=== PATIENT | male | born 1995 | race Caucasian/White ===

== ENCOUNTER 2019-08-14 09:49 | Day surgery (SDC) | payer OTHER ==
[2019-08-14] MEDS ORDERED: SODIUM CHLORIDE 1,000 ML IV STA ×2 (09:54→12:50)
[2019-08-14] MEDS ORDERED: FAMOTIDINE 20 MG/50 ML IVPB 20 MG/50 ML MG IVPB ONE ×2 (09:54→10:14)
[2019-08-14] MEDS ORDERED: ONDANSETRON 4 MG/2 ML VIAL IVPUSH ONE (09:54)
--- NOTE | 2019-08-14 09:54 | PDOC ---
History of Present Illness - General Chief Complaint: Nausea/Vomiting Stated Complaint: NAUSEA,VOMITING Time Seen by Provider: 08/14/19 09:54 History Source: Patient Exam Limitations: No Limitations - History of Present Illness Initial Comments: 24 yo M history ADHD presents with N/V, unable to keep anything down since yesterday. Emesis is bilious, non-bloody. No travel, no sick contacts. History of cannabis use since 15 years of age, states he uses it heavily to "self- medicate". He has had the same supply for the past 3 weeks. Denies fever, chills , diarrhea. C/o diffuse abd cramping. Past History - Past Medical History Allergies/Adverse Reactions: Allergies Allergy/AdvReac Type Severity Reaction Status Date / Time Penicillins Allergy Verified 08/14/19 09:53 Home Medications: Ambulatory Orders NK [No Known Home Medication] 08/14/19 Review of Systems - Review of Systems Able to Perform ROS?: Yes Comments:: GENERAL/CONSTITUTIONAL: No fever or chills. No weakness. HEAD, EYES, EARS, NOSE AND THROAT: No change in vision. No ear pain or discharge. No sore throat. CARDIOVASCULAR: No chest pain or shortness of breath. RESPIRATORY: No cough, wheezing, or hemoptysis. GASTROINTESTINAL: +Nausea, vomiting. No diarrhea or constipation. GENITOURINARY: No dysuria, frequency, or change in urination. MUSCULOSKELETAL: No joint or muscle swelling or pain. No neck or back pain. SKIN: No rash. NEUROLOGIC: No headache, vertigo, loss of consciousness, or change in strength/ sensation. ENDOCRINE: No increased thirst. No abnormal weight change. HEMATOLOGIC/LYMPHATIC: No anemia, easy bleeding, or history of blood clots. ALLERGIC/IMMUNOLOGIC: No hives or skin allergy. *Physical Exam - Physical Exam GENERAL: Awake, alert, and fully oriented. Well-appearing, mild pallor. Intermittently vomiting. HEAD: No signs of trauma EYES: PERRLA, EOMI, sclera anicteric, conjunctiva clear ENT: Auricles normal inspection, hearing grossly normal, nares patent, oropharynx clear without exudates. Dry mucosa NECK: Normal ROM, supple, no lymphadenopathy, JVD, or masses LUNGS: Breath sounds equal, clear to auscultation bilaterally. No wheezes, and no crackles HEART: Regular rate and rhythm, normal S1 and S2, no murmurs, rubs or gallops ABDOMEN: Soft, nontender, normoactive bowel sounds. No guarding, no rebound. No masses EXTREMITIES: Normal range of motion, no edema. No clubbing or cyanosis. No cords, erythema, or tenderness NEUROLOGICAL: Cranial nerves II through XII grossly intact. Normal speech, normal gait. Motor and sensation intact SKIN: Warm, dry, normal turgor, no rashes or lesions noted. ED Treatment Course - LABORATORY CBC & Chemistry Diagram: 08/14/19 10:00 08/14/19 10:00 Medical Decision Making - Medical Decision Making 08/14/19 10:35 Contacted [facility] urgent care to discuss his care, patient received 8mg zofran ODT there. Will cancel zofran and give reglan. Suspect viral gastro vs cannabis hyperemesis. He is well-appearing, nontoxic. 08/14/19 12:51 Pt reassessed. He states he feels much better now, has not vomited, asking for water. No longer pale, appears better from prior assessment. Discussed lab results with him. Will obtain CT on the basis of leukocytosis with neutrophil predominance. 08/14/19 14:16 CT results d/w Dr. Avila. Patient is currently nontender, feeling better. CT is suspicious for impending appendicitis. Options at present are to admit for serial abd exams and observation, DC and return if/when symptoms worsen. D/w patient, as well as his parents and step-mother via phone. They are still discussing options. 08/14/19 16:16 Dr. Avila at bedside to evaluate. Discharge - Discharge Information Problems reviewed: Yes Clinical Impression/Diagnosis: Appendicitis Qualifiers: Appendicitis type: acute appendicitis Acute appendicitis type: unspecified acute appendicitis type Qualified Code(s): K35.80 - Unspecified acute appendicitis Condition: Stable - Admission Yes - Follow up/Referral - Patient Discharge Instructions - Post Discharge Activity
[2019-08-14 09:56] VITALS: BMI 22.3
[2019-08-14 10:14] LABS: HEMATOCRIT 45.9 % (35.4-49); HEMOGLOBIN 15.5 GM/dl (11.7-16.9); MCH 31.7 pg (25.7-33.7); MCHC 33.9 g/dl (32.0-35.9); MEAN CELL VOLUME 93.7 fl (80-96); MEAN PLT VOLUME 8.5 fl (7.5-11.1); PLATELET COUNT 358 K/MM3 (134-434); RDW 11.9 % (11.9-15.9); WHITE BLOOD COUNT 15.4 K/mm3 (4.0-10.8)
[2019-08-14] MEDS ORDERED: ONDANSETRON 4 MG/2 ML VIAL ONE ×2 (10:24→17:32)
[2019-08-14 10:31] LABS: ALBUMIN 5.2 g/dl (3.4-5.0); BILIRUBIN,TOTAL 1.1 mg/dl (0.2-1); CREATININE 1.2 mg/dl (0.55-1.3); POTASSIUM 3.4 mmol/L (3.5-5.1); TOT PROT 8.3 g/dl (6.4-8.2)
[2019-08-14] MEDS ORDERED: METOCLOPRAMIDE HCL INJECTION 10 MG/2 ML VIAL IVPB ONE (10:40)
[2019-08-14] MEDS ORDERED: METOCLOPRAMIDE HCL INJECTION 10 MG/2 ML VIAL ONE (10:42)
[2019-08-14 10:50] LABS: PLATELET ESTIMATE ADEQUATE
[2019-08-14] MEDS ORDERED: LIDOCAINE HCL 1%, 10 MG/ML (20ML VIAL) ONE (16:55)
[2019-08-14] MEDS ORDERED: GUM MASTIC/STORAX/MSAL/ALCOHOL 1 DRP DROPSBTL MC ONE (16:55)
[2019-08-14] MEDS ORDERED: BUPIVACAINE HCL/PF 0.5% (5MG/ML) 10 ML VIAL ONE (16:55)
[2019-08-14] MEDS ORDERED: LACTATED RINGERS SOLUTION 1,000 ML/1,000 ML INFUS.BAG IV SCH ×2 (17:00→19:16)
--- NOTE | 2019-08-14 17:04 | HP ---
Admitting History and Physical - Primary Care Physician PCP: none - Admission Chief Complaint: N/V History of Present Illness: 24yo M with ADHD, self-medicates with daily MJ use/vaping, also vapes nicotine daily, no previous surgeries, presented with multiple episodes of N/V this week. He had some earlier in the week, but yesterday after work, developed central abdominal discomfort and could not stop vomiting, associated with anorexia and some chills. He had some liquids and matzoh ball soup, but hasn't tolerated solids for a few days. Last po yesterday except water and ice chips earlier today. In ER, he was afebrile with wbc 15 left shifted, and had CT showing appendicolith and mildly enlarged appendix at 8mm. His pain shifted a bit toward RLQ, but he now feels better and a little hungry. He did have formed BM earlier this morning, but admits to a little diarrhea in the last few days. History Source: Patient, Family Member (father) Limitations to Obtaining History: No Limitations - Past Medical History Cardiovascular: Yes: Murmur Pulmonary: Yes: Asthma (remotely - no medication for many years) Gastrointestinal: Yes: Gastritis (in past) Psych: Yes: Addictions (MJ/nicotine), Other (ADHD) - Past Surgical History Past Surgical History: Yes: None - Smoking History Smoking history: Current every day smoker (vapes nicotine and MJ) Have you smoked in the past 12 months: Yes Aproximately how many cigarettes per day: 0 (vapes only) - Alcohol/Substance Use Hx Alcohol Use: Yes (occasional) History of Substance Use: reports: Marijuana (daily and vapes) Date of Last Use: 08/14/19 - Social History Usual Living Arrangement: Yes: Other (with roommate) ADL: Independent Occupation: desk job Home Medications - Allergies Allergies/Adverse Reactions: Allergies Allergy/AdvReac Type Severity Reaction Status Date / Time Penicillins Allergy Verified 08/14/19 09:53 - Home Medications Home Medications: Ambulatory Orders NK [No Known Home Medication] 08/14/19 Family Medical History Family History: Unremarkable (noncontributory) Review of Systems - Review of Systems Constitutional: reports: Chills, Loss of Appetite. denies: Fever Eyes: denies: Blurred Vision, Recent Change in Vision HENT: reports: Throat Pain (after vomiting). denies: Difficult Swallowing Neck: denies: Swollen Glands, Tenderness Cardiovascular: denies: Chest Pain, Palpitations Respiratory: denies: Cough, SOB Gastrointestinal: reports: Abdominal Pain (with hpi), Nausea (with hpi), Vomiting (with hpi). denies: Constipation, Diarrhea Genitourinary: denies: Burning, Dysuria Musculoskeletal: denies: Back Pain, Joint Pain, Muscle Pain Integumentary: reports: Other (new tattoo right lower leg/calf). denies: Change in Color, Rash Neurological: reports: Dizziness (mild yesterday), Headache Physical Examination Vital Signs: Vital Signs Temperature 97.8 F 08/14/19 09:50 Pulse Rate 60 08/14/19 09:50 Respiratory Rate 18 08/14/19 09:50 Blood Pressure 126/61 08/14/19 09:50 O2 Sat by Pulse Oximetry (%) 100 08/14/19 09:50 Constitutional: Yes: Well Nourished, No Distress, Calm Eyes: Yes: Conjunctiva Clear, EOM Intact HENT: Yes: Atraumatic, Normocephalic Neck: Yes: Supple, Trachea Midline Cardiovascular: Yes: Regular Rate and Rhythm, Murmur (faint/difficult to appreciate) Respiratory: Yes: Regular, CTA Bilaterally Gastrointestinal: Yes: Normal Bowel Sounds, Soft, Tenderness (focal RLQ inferolaterally, no lita/guarding). No: Distention, Tenderness, Epigastrium ...Rectal Exam: Yes: Deferred Renal/: No: CVA Tenderness - Left, CVA Tenderness - Right Musculoskeletal: No: Back Pain, Joint Stiffness, Joint Swelling Extremities: No: Cool, Cyanosis Edema: No Peripheral Pulses WNL: Yes Integumentary: Yes: Tattoos. No: Jaundice, Rash Neurological: Yes: Alert, Oriented. No: Unsteady Gait Psychiatric: Yes: Alert, Oriented Labs: CBC, BMP 08/14/19 10:00 08/14/19 10:00 CMP Sodium 137 mmol/L (136-145) 08/14/19 10:00 Potassium 3.4 mmol/L (3.5-5.1) L 08/14/19 10:00 Chloride 103 mmol/L (98-107) 08/14/19 10:00 Carbon Dioxide 21 mmol/L (21-32) 08/14/19 10:00 Anion Gap 13 MMOL/L (8-16) 08/14/19 10:00 BUN 15.0 mg/dl (7-18) 08/14/19 10:00 Creatinine 1.2 mg/dl (0.55-1.3) 08/14/19 10:00 Est GFR (CKD-EPI)AfAm 98.19 08/14/19 10:00 Est GFR (CKD-EPI)NonAf 84.72 08/14/19 10:00 Random Glucose 148 mg/dl (74-106) H 08/14/19 10:00 Calcium 10.0 mg/dl (8.5-10) 08/14/19 10:00 Total Bilirubin 1.1 mg/dl (0.2-1) H 08/14/19 10:00 AST 26 U/L (15-37) 08/14/19 10:00 ALT 16 U/L (13-61) 08/14/19 10:00 Alkaline Phosphatase 52 U/L (45-117) 08/14/19 10:00 Total Protein 8.3 g/dl (6.4-8.2) H 08/14/19 10:00 Albumin 5.2 g/dl (3.4-5.0) H 08/14/19 10:00 Lipase 60 U/L (73-393) L 08/14/19 10:00 Imaging - Results Cat Scan: Report Reviewed, Image Reviewed (appendix to 8mm, appendicolith at base, no clear surrounding inflammation, no free fluid or air, no obstruction) Problem List - Problems (1) Acute appendicitis without peritonitis Assessment/Plan: admit 24H/satellite to surgery NPO until postop periop antibiotics DVT prophylaxis pain meds prn nonnarcotics first line Discussed with patient risks, benefits and alternatives of laparoscopic possible open appendectomy, including but not limited to bleeding, infection, injury to adjacent structures, intestinal leak or injury, intraabdominal abscess , incisional hernia, need for further procedures, ; alternatives include antibiotics, delayed or no surgery - risks of this include failure of nonoperative therapy, perforation, sepsis, recurrence, . Patient desires to proceed with operation - will take to OR for above. Informed consent signed for same. Code(s): K35.80 - UNSPECIFIED ACUTE APPENDICITIS (2) Appendicolith Code(s): K38.9 - DISEASE OF APPENDIX, UNSPECIFIED (3) Nausea & vomiting Code(s): R11.2 - NAUSEA WITH VOMITING, UNSPECIFIED Qualifiers: Vomiting type: unspecified Vomiting Intractability: non-intractable Qualified Code(s): R11.2 - Nausea with vomiting, unspecified (4) Periumbilical abdominal pain Code(s): R10.33 - PERIUMBILICAL PAIN (5) Nicotine dependence, other tobacco product, uncomplicated Code(s): F17.290 - NICOTINE DEPENDENCE, OTHER TOBACCO PRODUCT, UNCOMPLICATED (6) Marijuana abuse, continuous Code(s): F12.10 - CANNABIS ABUSE, UNCOMPLICATED
[2019-08-14 17:06] LABS: INR 1.37 (0.82-1.09); PROTHROMBIN TIME (PATIENT) 15.2 SEC (10.2-13.0)
[2019-08-14] MEDS ORDERED: fentaNYL CITRATE 250 MCG/5 ML VIAL ONE (17:09)
[2019-08-14] MEDS ORDERED: PROPOFOL 20 ML ONE ×2 (17:10)
[2019-08-14] MEDS ORDERED: ROCURONIUM BROMIDE 50 MG/5 ML SYRINGE ONE ×2 (17:10→17:52)
[2019-08-14] MEDS ORDERED: MIDAZOLAM HCL 2 MG/2 ML SINGLE DOSE VIAL ONE (17:10)
[2019-08-14] MEDS ORDERED: SUCCINYLCHOLINE CHLORIDE 200 MG/10 ML SYRINGE ONE (17:10)
[2019-08-14] MEDS ORDERED: LIDOCAINE HCL/PF 2% SDV 5ML VIAL ONE (17:32)
[2019-08-14] MEDS ORDERED: ceFAZolin SODIUM 1 GM VIAL ONE (17:32)
[2019-08-14] MEDS ORDERED: DEXAMETHASONE SOD PHOSPHATE 4 MG/1 ML VIAL ONE (17:32)
[2019-08-14] MEDS ORDERED: LIDOCAINE HCL 2% JELLY (5 ML/TUBE) ONE (17:32)
[2019-08-14] MEDS ORDERED: BUPIVACAINE HCL/PF 0.5% (5MG/ML) 10 ML VIAL IJ ONE (17:33)
[2019-08-14] MEDS ORDERED: NEOSTIGMINE METHYLSULFATE 0.5 MG/ML - 10 ML MDV ONE (18:33)
[2019-08-14] MEDS ORDERED: GLYCOPYRROLATE 0.2 MG/1 ML VIAL ONE (18:33)
[2019-08-14] MEDS ORDERED: HYDROmorphone HCL/PF 1 MG/ML AMP ONE ×2 (18:35)
[2019-08-14] MEDS ORDERED: PROMETHAZINE HCL 25 MG/1 ML VIAL IVPUSH PRN (18:59)
[2019-08-14] MEDS ORDERED: ONDANSETRON 4 MG/2 ML VIAL IVPUSH PRN ×2 (18:59→19:16)
[2019-08-14] MEDS ORDERED: oxyCODONE HCL 5 MG TABLET PO PRN ×2 (18:59)
--- NOTE | 2019-08-14 19:08 | OP ---
Operative Note - Note: Operative Date: 08/14/19 Pre-Operative Diagnosis: acute appendicitis Operation: laparoscopic appendectomy Findings: enlarged/inflamed distal appendix, base normal with palpable appendicolith, inside specimen; no fluid in pelvis Post-Operative Diagnosis: Same as Pre-op Surgeon: Audi Avila Anesthesiologist/MELTER HELPER: Waldemar Amato Anesthesia: General, Local (10ml 0.5% marcaine) Specimens Removed: appendix to pathology Estimated Blood Loss (mls): 5 Drains & Tubes with Location: Asif out at end of case Drains, Volume Out (mls): 300 (UOP) Fluid Volume Replaced (mls): 800 (crystalloid) Operative Report Dictated: Yes
[2019-08-14] MEDS: ACETAMINOPHEN 325 MG TABLET (FP) PO SCH (20:38)
[2019-08-14] MEDS ORDERED: ACETAMINOPHEN 325 MG TABLET (FP) PO SCH (21:00)
[2019-08-14] MEDS: IBUPROFEN 600 MG TABLET (FP) PO SCH (23:58)
[2019-08-15] MEDS ORDERED: IBUPROFEN 600 MG TABLET (FP) PO SCH
[2019-08-15] MEDS: ACETAMINOPHEN 325 MG TABLET (FP) PO SCH ×2 (02:59→09:00)
[2019-08-15] MEDS: IBUPROFEN 600 MG TABLET (FP) PO SCH ×3 (05:55→17:34)
[2019-08-15] MEDS ORDERED: oxyCODONE HCL 5 MG TABLET PO ONE ×2 (11:58→18:07)
--- NOTE | 2019-08-15 12:16 | DS ---
Physical Examination Vital Signs: Vital Signs Temperature 98.2 F 08/15/19 03:00 Pulse Rate 57 L 08/15/19 03:00 Respiratory Rate 18 08/15/19 03:00 Blood Pressure 120/48 L 08/15/19 03:00 O2 Sat by Pulse Oximetry (%) 100 08/15/19 07:01 Findings/Remarks: Seen and examined in bed. c/o pain, but less than previously/before admission. Has voided, been up to bathroom but not ambulating in halls yet. Tolerated liquids and some applesauce. Not very hungry yet. Passed some gas, no BM yet. IV was coming out - removed early this am. Pt ate a little for dinner, pain much better controlled with oxycodone 5mg in addition to tylenol and ibuprofen. Constitutional: Yes: Well Nourished, No Distress, Calm Eyes: Yes: Conjunctiva Clear, EOM Intact HENT: Yes: Atraumatic, Normocephalic Cardiovascular: Yes: Regular Rate and Rhythm Respiratory: Yes: Regular, CTA Bilaterally Gastrointestinal: Yes: Normal Bowel Sounds, Soft, Distention (minimal, some tympany), Tenderness (mostly incisional, mild RLQ, no rebound/guarding) Musculoskeletal: No: Joint Stiffness, Joint Swelling Extremities: No: Cool, Cyanosis Integumentary: Yes: Incision (x3 dressed), Tattoos. No: Jaundice, Rash Wound/Incision: Yes: Steri Strips (under dressings), Dressing Dry and Intact (x3 ). No: Dressing Removed Neurological: Yes: Alert, Oriented. No: Unsteady Gait (got up and ambulated to nurse's station and back to room) Psychiatric: Yes: Alert, Oriented Labs: no new labs Discharge Summary Problems reviewed: Yes Reason For Visit: APPENDICITIS/APPENDECTOMY Current Active Problems Acute appendicitis without peritonitis (Acute) Appendicolith (Acute) Marijuana abuse, continuous (Acute) Nausea & vomiting (Acute) Nicotine dependence, other tobacco product, uncomplicated (Acute) Periumbilical abdominal pain (Acute) Procedures: Principal: laparoscopic appendectomy Hospital Course: 24yo M with ADHD, remote asthma, uses MJ and vapes nicotine daily, presented with nausea and vomiting, associated with abdominal pain migrating from central abdomen the day before to RLQ in ER, anorexia, subjective chills. He had wbc 15 , and CT showed appendicolith and borderline enlarged appendix. Exam was significant for focal RLQ tenderness, and he was taken for uneventful laparoscopic appendectomy with findings of enlarged/inflamed appendix and appendicolith taken inside specimen. Postop, he has tolerated some po, ambulated and voided. Pain is managed with alternating Tylenol and ibuprofen, and prn oxycodone. He will be discharged home with lifting restrictions and Rx for a limited number of Percocet to use with tylenol and ibuprofen. He is urged not to smoke or vape anything, and to follow up with a primary care physician as well as surgery. Time spent on discharge 35 minutes. Condition: Improved - Instructions Diet, Activity, Other Instructions: Postoperative instructions: You had a laparoscopic appendectomy on 08/14/[address] Audi Avila of [facility]. Activity: Resume your usual activities gradually, but no heavy exertion or lifting more than 10-15 pounds for 1 month. Remove dressings 48 hours after surgery; sticky tapes underneath will fall off by themselves. You may shower daily starting then, just pat the incision areas dry. No bath or swimming until skin incisions have healed. Eat lightly at first, but advance to your usual diet as tolerated. Pain: For pain, you may use and alternate Tylenol (acetaminophen) 1-2 pills and/ or ibuprofen 200 mg (1-3 pills) every 6 hours each as needed; this means that you can take one OR the other at 3-hour intervals. If you are prescribed a Tylenol/narcotic combination for severe pain, use it instead of plain Tylenol as needed and switch back when your pain starts decreasing. Do not take more than 4000mg of acetaminophen in a day. Take medications as prescribed or indicated on the labeling. Follow-up: Call Dr. Avila's office at [phone] to make your postop appointment. Clinic is held in the [facility] on the first floor of [facility]. Call the office if you have: * increasing pain not responsive to pain medication * fever of 101F or higher * vomiting * unusual or increasing bleeding or drainage from wounds * increasing redness or swelling at wound sites Also, see your primary medical doctor within 1-2 weeks, or make an appointment with one to whom you have been referred. Referrals: Audi Avila MD [Staff Physician] - Valentine Lockett MD [Staff Physician] - (call for appt to establish primary care , if you do not have another physician) Disposition: HOME - Home Medications Comprehensive Discharge Medication List: Ambulatory Orders Acetaminophen [Tylenol .Regular Strength -] 1,000 mg PO Q6H tablet 08/15/19 Ibuprofen [Motrin -] 600 mg PO Q6H tablet 08/15/19 Percocet 5/325 mg PO Q6H PRN SEVERE PAIN #12 tablet 08/15/19 Prescription Drug Monitoring Program (I-STOP) results: I-STOP not reviewed
[2019-08-15 14:47] VITALS: BP 125/66; PULSE 58; TEMP 97.7
[2019-08-15] MEDS ORDERED: ACETAMINOPHEN 500 MG TABLET (FP) PO SCH (15:00)
--- NOTE | 2019-08-18 16:07 | PATH ---
Surgical Pathology Report Patient Name: RESHMA BROWN Med. Rec. #: [id number] /Age/Gender: 1995 (Age: 24) / M Account: [id number] Location: [facility] Taken: 08/14/2019 Received: 08/14/2019 Reported: 08/18/2019 Physicians: Navarro Chaudhary Specimen(s) Received APPENDIX Clinical History Acute appendicitis Final Diagnosis APPENDIX, LAPAROSCOPIC APPENDECTOMY: ACUTE APPENDICITIS. Electronically Signed Chelsi Lopez M.D. Gross Description Received in formalin, labeled "appendix," is a 6 cm. in length vermiform appendix with a stapled margin of resection and abundant attached fat. The serosa is nolan-moreira and smooth. Sectioning reveals a focally dilated lumen containing a fecalith. The wall of the appendix averages 0.2 cm. in thickness. Senior Information Developer sections are submitted in one cassette. /08/17/2019 saudi08/17/2019
--- NOTE | 2019-08-22 09:04 | OP ---
DATE OF OPERATION: 08/14/2019 PREOPERATIVE DIAGNOSIS: Acute appendicitis with appendicolith. POSTOPERATIVE DIAGNOSIS: Acute appendicitis with appendicolith. PROCEDURE: Laparoscopic appendectomy. SURGEON: Audi Avila MD ANESTHESIA: General endotracheal and local, 10 mL of 0.5% Marcaine. ESTIMATED BLOOD LOSS: 5 mL. FLUIDS: 800 mL of crystalloid. URINE OUTPUT: 300 mL (Asif out at end of case). SPECIMEN: Appendix to Pathology. FINDINGS: An enlarged, inflamed distal appendix. Normal base with palpable appendicolith inside the specimen and no fluid in the pelvis. DISPOSITION: Stable and extubated to PACU. INDICATIONS FOR PROCEDURE: The patient is a 24-year-old male with ADHD who self-medicates with daily marijuana use, that is smoking and vaping. He also vapes nicotine daily and has a remote history of asthma and a benign heart murmur. He presented to the [facility] Emergency Room with multiple episodes of nausea and vomiting over several of the previous days. The day prior to presentation, however, he developed central abdominal discomfort associated with anorexia and some chills and could not stop vomiting solid foods, although he was able to tolerate some liquids and a little matzo ball soup. In the emergency room, he was afebrile with a white count of 15,000, left-shifted. He had a CT showing the presence of an appendicolith and a mildly enlarged appendix. His pain had shifted a bit to the right lower quadrant. He also admitted to a little diarrhea in the previous couple of days. His exam was consistent with focal right lower quadrant tenderness inferolaterally without rebound or guarding. Risks, benefits, and alternatives of laparoscopic, possible open, appendectomy were discussed with the patient including, but not limited to, bleeding, infection, injury to adjacent structures, intestinal leak or injury, intra- abdominal abscess, incisional hernia, and need for further procedures with alternatives inclusive of antibiotics and delayed or no surgery, giving risks of failure of nonoperative therapy, perforation, sepsis, recurrence, and . The patient desired to proceed with the operation, signed informed consent for the same, and is now brought to the OR for this procedure. OPERATIVE TECHNIQUE: The patient was brought to the operating room and laid supine on the operating table. Sequential compression devices were applied to bilateral lower extremities, and after induction and intubation by Anesthesia, his lower abdomen was clipped of hair, prepped and draped in sterile fashion, after a Asif catheter was placed, which was removed from his bladder at the end of the case. A small infraumbilical midline incision was made with a scalpel and carried into subcutaneous tissues with electrocautery, until the abdominal wall fascia was identified, scored and elevated with Mary clamps. The peritoneum was entered bluntly with the tip of a clamp. A fingertip was inserted to ensure entry into the abdominal cavity and the absence of any underlying adhesions. A stay suture of 0 Vicryl was then placed in [id number] fashion in the fascia for later closure, and the Michael trocar introduced directly into the abdominal cavity and secured in place with the balloon. The abdomen was insufflated with carbon dioxide. The patient was placed in Trendelenburg position, and the laparoscope inserted with visualization of the pelvis, and no fluid was noted to be present there. Two additional 5-mm ports were then placed under direct vision in the suprapubic and left lower quadrant areas. The camera was switched to the left lower quadrant port, and graspers introduced to the other two. The small bowel was then gently manipulated medially away from the right lower quadrant, revealing the distal aspect of the appendix, which was enlarged and inflamed. Working proximally, a normal base was identified, and the appendix was grasped near the base with the left hand grasper. There was a palpable appendicolith just distal to this in the neck of the appendix. A [place] dissector was used to create a window at the base of the appendix where it joined the cecum, such that the base could be transected with a 45 purple load of the Endo LILO stapler. Once this had been accomplished, the staple line was inspected for hemostasis and was noted not to be bleeding. The appendix was then held up, and the mesoappendix taken with a white load of the Endo LILO stapler, to completely separate the appendix from the adjacent tissues. It was set down momentarily in the right lower quadrant to inspect the operative field and the staple lines. Again, hemostasis was noted. There was scant fluid in the pelvis and very little blood loss. The appendix was then placed in an EndoCatch bag and drawn up into the Michael trocar inside the bag. The suprapubic port was removed under direct vision, with the camera in the left lower quadrant port. The appendix in the bag along with the Michael trocar were withdrawn, also under direct vision, and then the camera and left lower quadrant port also removed en bloc. The abdomen was exsufflated of carbon dioxide, and the specimen passed off to be sent to Pathology. The appendicolith was palpable within the base of the appendix. The patient was returned to neutral position. The stay suture at the umbilicus was tied to close the fascia there. Hemostasis was achieved in port sites with electrocautery where necessary, and local anesthetic infiltrated into all the port sites. Skin was then closed with 4-0 Vicryl subcuticular sutures, including a running at the umbilicus. Benzoin and Steri-Strips were applied over each incision site, and dressings of gauze and Tegaderm placed over these. The Asif catheter was then removed from the patient's bladder. Counts were correct at the end of the procedure. The patient was then awakened and extubated by Anesthesia, moved back onto a stretcher, and taken to the recovery room in stable condition, having tolerated the procedure well. Navarro [id number] MTDD
== END 2019-08-15 18:59 | disposition home or self-care (01) ==
LOC: FER 09:49 → FASU 16:44 → FM/S 16:58 → FASU 08-15 18:59
PROVIDERS: ATTEND Surgery
PROC: 0DTJ4ZZ Resection of Appendix, Percutaneous Endoscopic Approach (ICD-10-PCS; principal; 2019-08-14 17:48)
DX: K35.890 Other acute appendicitis without perforation or gangrene (principal); F90.9 Attention-deficit hyperactivity disorder, unspecified type; Z88.0 Allergy status to penicillin
CPT/HCPCS: 36415; 74177-TC; 80053; 83690; 85025; 85610; 86850; 86900; 86901; 88304-TC; 94760; 99285-25; J7030

== ENCOUNTER 2019-08-26 14:32 | Emergency (ER) | payer OTHER ==
--- NOTE | 2019-08-26 14:46 | PDOC ---
History of Present Illness - General Chief Complaint: Wound Stated Complaint: ABDOMINAL SURGICAL SITE REDDENED Time Seen by Provider: 08/26/19 14:45 History Source: Patient Exam Limitations: No Limitations - History of Present Illness Initial Comments: 08/26/19 14:45 Teddy Atkinson is a 24M with H laparoscopic appendectomy with Dr. Avila presenting with surgical site pain and discharge. Had abdominal pain 10 days prior and diagnosed with appendicitis on 08/15/19. Underwent lap appy with Dr. Avila at that time, discharged home. Recovering well, but for last 2 days has been noticing mild yellow discharge on bandage and discomfort below the largest midline port incision. Concerned for infection, came to ED for eval. Denies F/C, N/V/C/D, SOB, chest pain, urinary sx. Otherwise feels well. Past History - Past Medical History Allergies/Adverse Reactions: Allergies Allergy/AdvReac Type Severity Reaction Status Date / Time Penicillins Allergy Unknown Verified 08/26/19 14:41 Home Medications: Ambulatory Orders NK [No Known Home Medication] 08/26/19 COPD: No GI Disorders: Yes (gastritis) - Psycho Social/Smoking Cessation Hx Smoking History: Current every day smoker (vapes nicotine and MJ) Have you smoked in the past 12 months: Yes Number of Cigarettes Smoked Daily: 0 (vapes only) Hx Alcohol Use: Yes (occasional) Review of Systems - Review of Systems Able to Perform ROS?: Yes Constitutional: No: Symptoms Reported HEENTM: No: Symptoms Reported Respiratory: No: Symptoms reported Cardiac (ROS): No: Symptoms Reported ABD/GI: Yes: Abdominal cramping. No: Constipated, Diarrhea, Nausea, Poor Appetite, Poor Fluid Intake, Rectal Bleeding, Vomiting : No: Symptoms Reported Musculoskeletal: No: Symptoms Reported Integumentary: No: Symptoms Reported Neurological: No: Symptoms reported Endocrine: No: Symptoms Reported Hematologic/Lymphatic: No: Symptoms Reported All Other Systems: Reviewed and Negative *Physical Exam - Physical Exam General Appearance: Yes: Nourished, Appropriately Dressed, Thin, Other (resting comfortably in bed in NAD). No: Apparent Distress HEENT: positive: EOMI, WALDO, Normal ENT Inspection, Normal Voice, Symmetrical, Pharynx Normal, Hearing Grossly Normal. negative: Muffled/Hoarse voice, Pharyngeal Erythema, Tonsillar Exudate Neck: positive: Trachea midline, Normal Thyroid, Supple, Thyromegaly. negative: Tender, Rigid, Lymphadenopathy (R), Lymphadenopathy (L), Tender lateral, Tender midline Respiratory/Chest: positive: Lungs Clear, Respiratory Distress. negative: Chest Tender, Accessory Muscle Use, Crackles, Rales, Rhonchi, Stridor, Wheezing Cardiovascular: positive: Regular Rhythm, Regular Rate. negative: Murmur Gastrointestinal/Abdominal: positive: Normal Bowel Sounds, Tender (discomfort to palpation of subumbilical surgical site), Soft, Other (largest surgical incision below umbilicus well-approximated with granulation tissue and no active discharge or bleeding, other two incisions closed and appear well-healed). negative: Flat (has mild swelling to region around subumbilical surgical incision), Organomegaly, Pulsatile Mass, Protuberent, Hernia Musculoskeletal: positive: Normal Inspection. negative: CVA Tenderness, Decreased Range of Motion, Vertebral Tenderness Extremity: positive: Normal Capillary Refill, Normal Inspection, Normal Range of Motion, Pelvis Stable. negative: Tender, Coldness, Cyanosis Integumentary: positive: Normal Color, Dry, Warm Neurologic: positive: Fully Oriented, Alert, Normal Mood/Affect, Normal Response Medical Decision Making - Medical Decision Making 08/26/19 15:00 Patient presents for surgical wound check 10 days after surgery for some mild discharge and discomfort from surgical site. Appears to have some mild yellow granulation tissue but no active bleeding or discharge, wound margins well-a pproximated without sutures, mild discomfort when palpating but no other concerning findings. Bedside shows <0.5cm deep well-demarcated fluid-filled region directly below the incision consistent with a superficial seroma, no loculations, low suspicion of abscess or tract into abdominal cavity. Stable for discharge home with surgery clinic f/u as scheduled, with strict return precautions explained. Discharge - Discharge Information Problems reviewed: Yes Clinical Impression/Diagnosis: Skin wound from surgical incision Abdominal pain Qualifiers: Abdominal location: lower abdomen, unspecified Qualified Code(s): R10.30 - Lowe r abdominal pain, unspecified Condition: Stable Disposition: HOME - Admission No - Follow up/Referral Referrals: Audi Avila MD [Primary Care Provider] - - Patient Discharge Instructions Patient Printed Discharge Instructions: How to Care for a Surgical Wound Additional Instructions: Today you were evaluated for pain and discharge from your surgery incision. We have evaluated your abdomen and do not see evidence of a deep infection. At home, please take Advil as needed for pain. If you experience worsening pain, fevers/chills, nausea/vomiting, diarrhea, or have pus or blood from your wound, please return to the emergency room. - Post Discharge Activity
[2019-08-26 14:59] VITALS: BP 141/83; PULSE 59; TEMP 98.2; BMI 20.3
--- NOTE | 2019-08-26 15:00 | PDOC ---
Attending Attestation - Resident Resident Name: Derek Phillips - ED Attending Attestation I have performed the following: I have examined & evaluated the patient, The case was reviewed & discussed with the resident, I agree w/resident's findings & plan, Exceptions are as noted - HPI HPI: 08/26/19 15:02 Appendectomy by laparoscope approximately 1 week ago, Dr. Avila. Now has warmth and mild pain at the incision above the umbilicus. There has been a small amount of discolored drainage from the wound. No fever/chills, nausea, vomiting, diarrhea, or severe intra-abdominal pain. - Physicial Exam PE: 08/26/19 15:05 Afebrile, vital signs normal. Mild erythema around the upper incision. Mild tenderness around the incision with the suggestion of a subcutaneous collection of fluid, may be a seroma. No purulent drainage present now. No tenderness to deep palpation that would suggest an abscess or other intraperitoneal infection. - Medical Decision Making 08/26/19 15:07 Assessment: Small seroma versus reaction to subcuticular suture material. No external sutures in place Plan: Warm compresses, analgesics, and follow-up with surgeon. Return to ER if there is fever or increased pain. Fully ambulatory and in no significant distress at discharge to follow-up as directed 08/26/19 15:40
== END 2019-08-26 15:43 | disposition home or self-care (01) ==
LOC: FER 14:32
DX: R10.30 Lower abdominal pain, unspecified (principal); F17.210 Nicotine dependence, cigarettes, uncomplicated; T81.89XA Other complications of procedures, not elsewhere classified, initial encounter; Z88.0 Allergy status to penicillin
CPT/HCPCS: 99281-25

== ENCOUNTER 2022-02-19 12:34 | Emergency (ER) | payer OTHER ==
[2022-02-19 12:44] VITALS: BP 123/83; PULSE 75; RESP 20; TEMP 98.9; BMI 22.4
[2022-02-19] MEDS ORDERED: KETOROLAC TROMETHAMINE 30 MG/1 ML VIAL IVPUSH ONE (13:47)
[2022-02-19] MEDS ORDERED: SODIUM CHLORIDE 1,000 ML IV STA (13:47)
[2022-02-19] MEDS ORDERED: KETOROLAC TROMETHAMINE 30 MG/1 ML VIAL ONE (13:59)
[2022-02-19 14:05] LABS: HEMATOCRIT 43.2 % (35.4-49); HEMOGLOBIN 15.3 G/dL (11.7-16.9); MCH 34.1 pg (25.7-33.7); MCHC 35.3 g/dl (32.0-35.9); MEAN CELL VOLUME 96.5 fl (80-96); MEAN PLT VOLUME 8.2 fl (7.5-11.1); PLATELET COUNT 238.3 10^3/uL (134-434); RBC 4.48 10^6/uL (4.00-5.60); RDW 13.2 % (11.9-15.9); WHITE BLOOD COUNT 6.2 10^3/uL (4.0-10.8)
[2022-02-19 14:18] LABS: ALBUMIN 4.3 g/dl (3.4-5.0); BILIRUBIN,TOTAL 0.7 mg/dl (0.2-1); CALCIUM 9.8 mg/dl (8.5-10); TOT PROT 7.5 g/dl (6.4-8.2)
[2022-02-19] MEDS ORDERED: METHOCARBAMOL 500 MG TABLET PO ONE (15:24)
== END 2022-02-19 16:01 | disposition home or self-care (01) ==
LOC: FER 12:34
PROC: 3E0333Z Introduction of Anti-inflammatory into Peripheral Vein, Percutaneous Approach (ICD-10-PCS; principal; 2022-02-19)
PROC: 3E0337Z Introduction of Electrolytic and Water Balance Substance into Peripheral Vein, Percutaneous Approach (ICD-10-PCS; 2022-02-19)
DX: U07.1 COVID-19 (principal); M54.50 Low back pain, unspecified
CPT/HCPCS: 0241U-QW; 36415; 80053; 81003; 82550; 85027; 93005; 99284-25